=== PATIENT | female | born 1940 | race Caucasian/White ===

== ENCOUNTER 2018-03-22 09:44 | Day surgery (SDC) | payer BC ==
--- NOTE | 2018-03-12 14:05 | HP ---
Admitting History and Physical - Primary Care Physician PCP: Ayden Eden - Admission Chief Complaint: left breast atypia History of Present Illness: 77 yo female with h/o bilateral breast cancer, was noted to have a left breast lesion on exam. Punch bx of this lesion done 02/21/2018 was c/w atypical vascular lesion for which a wide excision is now required. History Source: Patient - Past Medical History FIELD SALES MANAGER: Yes: Vertigo Cardiovascular: Yes: HTN Gastrointestinal: Yes: Peptic Ulcer Disease Heme/Onc: Yes: Cancer (lymphoma 2010) ENT: Yes: Other (cataracts) Endocrine: Yes: Hyperthyroidism - Past Surgical History Past Surgical History: Yes: Breast Biopsy, Mastectomy (right mastectomy with snbx (2011) cervical LN bx (2010) left breast WE with snbx (2009)) - Smoking History Smoking history: Former smoker Have you smoked in the past 12 months: No Aproximately how many cigarettes per day: 20 If you are a former smoker, when did you quit?: 1999 - Alcohol/Substance Use Hx Alcohol Use: No Home Medications - Allergies Allergies/Adverse Reactions: Allergies Allergy/AdvReac Type Severity Reaction Status Date / Time Sulfa (Sulfonamide Allergy Intermediate Rash Verified 12/18/14 09:27 Antibiotics) [Sulfa(Sulfonamide Antibiotics)] famotidine [From Pepcid] Allergy Rash Verified 12/18/14 09:27 - Home Medications Home Medications: Ambulatory Orders Methimazole 5 mg PO DAILY 11/15/12 Metoprolol Succinate [Toprol XL -] 50 mg PO DAILY 11/15/12 Simvastatin [Zocor -] 20 mg PO HS 11/15/12 Calcium Carbonate [Calcium] 1,200 mg PO DAILY 12/17/14 Ergocalciferol (Vitamin D2) [Vitamin D] 50,000 unit PO WEEKLY 12/17/14 Letrozole 2.5 mg PO DAILY 12/17/14 Family Disease History - Family Disease History Family Disease History: CA: Father (colon cancer), Mother (breast cancer) Review of Systems - Review of Systems Constitutional: reports: No Symptoms Cardiovascular: reports: No Symptoms Respiratory: reports: No Symptoms Physical Examination Constitutional: Yes: Well Nourished, Calm (Left biopsy) Breast(s): Yes: Left (Biopsy site with mild erythema but without discharge. No other palpable masses or adenopathy noted.) Assessment/Plan A. Left breast atypical vascular lesion Plan WE of left breast atypical vascular lesion
[2018-03-15 10:37] VITALS: BMI 28.2
[2018-03-22] MEDS ORDERED: LIDOCAINE HCL 1%, 10 MG/ML (20ML VIAL) ONE (10:33)
[2018-03-22] MEDS ORDERED: oxyCODONE HCL 5 MG TABLET PO PRN ×2 (11:08)
[2018-03-22] MEDS ORDERED: ONDANSETRON 4 MG/2 ML VIAL IVPUSH PRN ×2 (11:08→12:34)
[2018-03-22] MEDS ORDERED: LACTATED RINGERS SOLUTION 1,000 ML IV SCH (11:15)
[2018-03-22] MEDS ORDERED: PROPOFOL 20 ML ONE ×3 (11:24)
[2018-03-22] MEDS ORDERED: GUM MASTIC/STORAX/MSAL/ALCOHOL 1 DRP DROPSBTL MC ONE (12:09)
[2018-03-22] MEDS ORDERED: LIDOCAINE HCL 1%, 10 MG/ML (50 mL VIAL) IJ ONE (12:18)
[2018-03-22] MEDS ORDERED: BUPIVACAINE HCL/PF 0.25% (2.5MG/ML) 10 ML VIAL IJ ONE (12:19)
[2018-03-22] MEDS ORDERED: KETOROLAC TROMETHAMINE 30 MG/1 ML VIAL IVPUSH PRN (12:34)
[2018-03-22] MEDS ORDERED: DEXTROSE 5%-0.45% SALINE 1,000 ML IV SCH (12:45)
[2018-03-22 13:14] VITALS: PULSE 62; TEMP 98.2
[2018-03-22] MEDS ORDERED: ACETAMINOPHEN 325 MG TABLET (FP) PO ONE (13:14)
[2018-03-22] MEDS ORDERED: ACETAMINOPHEN 500 MG TABLET (FP) ONE (13:15)
[2018-03-22 13:27] VITALS: BP 130/62
--- NOTE | 2018-03-22 19:57 | OP ---
DATE OF OPERATION: 03/22/2018 PREOPERATIVE DIAGNOSIS: Left breast chest wall atypical lesion. POSTOPERATIVE DIAGNOSIS: Left breast chest wall atypical lesion. PROCEDURE: Excision of left breast chest wall lesion. ANESTHESIA: Local with IV sedation. SURGEON: Sarah Eden M.D. SALES SERVICE SUPERVISOR: Tracey Andres COMPLICATIONS: There were no complications. 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 She had intraoperative and postoperative radiation as well as chemotherapy. She later developed lymphoma and had chemotherapy. She then developed a right breast cancer in 2011 and underwent a mastectomy and an implant reconstruction and was placed on a . She has now developed a lesion just on the lower aspect of the skin on the left breast which had a suspicious appearance, and we did a punch biopsy of this lesion in the office on February 21, 2018, which showed an atypical vascular lesion. Complete excision was recommended. Given her prior history of radiation and the radiated changes noted around this lesion, it was decided to perform this procedure in the operating room. The patient was brought in for the procedure on March 22, 2018. In the holding area, a site verification was made, and informed consent was obtained. She was brought into the operating room and laid on the OR table in a supine position. Venodynes were placed on the lower extremities. The left lower breast was sterilely prepped and draped in the usual fashion. She was given IV sedation. 1% lidocaine with 0.25% Marcaine mixed 50:50 was injected around the excision site. An elliptical incision was made around the prior punch biopsy site, fully excising this with good margins. Dissection was undertaken all the way down to the chest wall, and we did enter the seroma cavity from her prior surgery and debrided some of this tissue out as well. The specimen was oriented with a long lateral, short superior suture and sent to pathology in formalin. Hemostasis was achieved. The tissue was then reapproximated using 2-0 plain suture. The skin was closed using interrupted 3-0 deep dermal Vicryl suture in a running 4-0 subcuticular Biosyn suture. Mastisol, Steri-Strips were applied over the wound and compressive dressing placed over this. She was placed in a surgical bra postoperatively. The patient was awake and alert at the end of the procedure. She is to follow up in the office in 1 week for formal wound pathology check. She will be discharged home the same day once discharge criteria are met. All sponge and needle counts are correct at the end of the case. SARAH EDEN M.D. [id number]
--- NOTE | 2018-03-27 12:14 | PATH ---
Surgical Pathology Report Patient Name: GINO TRORES [facility]. Rec. #: [id number] /Age/Gender: 1940 (Age: 77) / F Account: [id number] Location: [facility] Taken: 03/22/2018 Received: 03/23/2018 Reported: 03/27/2018 Physicians: Ayden Eden M.D. Specimen(s) Received LEFT CHEST WALL EXCISION Clinical History History of left breast cancer status post partial mastectomy in 2009, status post intraoperative and external beam radiation. Developed skin lesion-biopsy showed atypical vascular lesion, now for wide excision Final Diagnosis SKIN, CHEST WALL, LEFT, EXCISION: ATYPICAL VASCULAR LESION (AVL), COMPLETELY EXCISED. CHANGES OF PRIOR PROCEDURE AND FOCAL FAT NECROSIS PRESENT. Comment: Prior materials are noted. Electronically Signed Mayra Britton M.D. Gross Description Received in formalin labeled "left chest wall excision," is a 3.4 x 1.1 cm wiggins, elliptical portion of skin excised to depth of 0.9 cm. There is a short suture marking the superior aspect and a long suture marking the lateral tip of the specimen, per the surgeon. The epidermal surface displays a 0.8 x 0.5 cm pigmented lesion. The specimen is inked as follows: Superior aspect blue, inferior aspect green, lateral tip red, deep black. The specimen is serially sectioned from lateral to medial. The specimen is entirely and sequentially submitted in 7 cassettes with the lateral tip in cassette 1, the medial tip in cassette 7 and the lesion in cassettes 3-5. /03/23/2018 saudi03/23/2018
== END 2018-03-22 13:53 | disposition home or self-care (01) ==
LOC: FASU 09:44
PROVIDERS: ATTEND Surgery Surgical Oncology
PROC: 0HBU0ZZ Excision of Left Breast, Open Approach (ICD-10-PCS; principal; 2018-03-22 11:51)
DX: D24.1 Benign neoplasm of right breast (principal); N63.20 Unspecified lump in the left breast, unspecified quadrant; Z85.3 Personal history of malignant neoplasm of breast; Z90.13 Acquired absence of bilateral breasts and nipples; I10 Essential (primary) hypertension; E05.90 Thyrotoxicosis, unspecified without thyrotoxic crisis or storm; Z87.891 Personal history of nicotine dependence
CPT/HCPCS: 88307-TC